=== PATIENT | male | born 1975 | race Two or more races ===

== ENCOUNTER 2019-01-18 06:55 | Inpatient (IN) | payer OTHER ==
[~2019-01-18] VITALS: Ht 180.3 cm; Wt 104.3 kg
--- NOTE | 2019-01-18 07:01 | NUR ---
BIBA FOR C/O CP X 2HRS. RECEIVED ONE SPRAY OF NITRO AND 162 MG OF ASA FUEL TANK SEALER AND TESTER W/ HELP. CURRENTLY PT ENDORSED CP 410 , RADIATING TO THE L ARM. PT PLACED ON A MONITOR, ECG TECH AT THE BED SIDE
[2019-01-18 07:22] LABS: BASOPHILS # (AUTO) 0.1 /CMM (0.0-0.2); BASOPHILS % (AUTO) 1.4 % (0.0-2.0); EOSINOPHILS % (AUTO) 1.2 % (0.0-6.0); HEMATOCRIT 48 % (39-51); HEMOGLOBIN 16.4 g/dL (13.5-17.5); LYMPHOCYTES # (AUTO) 1.4 /CMM (0.8-4.8); LYMPHOCYTES % (AUTO) 17.9 % (20.0-44.0); MEAN CORPUSCULAR HGB CONC 34 g/dl (31.0-36.0); MEAN CORPUSCULAR VOLUME 90 fL (80-96); MONOCYTES # (AUTO) 0.6 /CMM (0.1-1.30); MONOCYTES % (AUTO) 7.4 % (2.0-12.0); NEUTROPHILS # (AUTO) 5.5 /CMM (1.8-8.9); NEUTROPHILS % (AUTO) 72.1 % (43.0-81.0); PLATELET COUNT (AUTO) 233 /CMM (150-450); WHITE BLOOD COUNT (AUTO) 7.6 K/uL (4.3-11.0)
[2019-01-18 07:33] LABS: CALCIUM, SERUM 8.6 mg/dL (8.5-10.1); CARBON DIOXIDE 29 mmol/L (21-32); CHLORIDE 104 mmol/L (98-107); CREATININE 1.1 mg/dL (0.6-1.3); GLUCOSE 97 mg/dL (74-106); POTASSIUM 3.5 mmol/L (3.5-5.1); SODIUM SERUM 142 mmol/L (136-145); UREA NITROGEN, BLOOD 11 mg/dL (7-18)
--- NOTE | 2019-01-18 07:46 | NUR ---
epic distribution designer paged
[2019-01-18 07:47] LABS: ALANINE AMINOTRANSFERASE 27 U/L (12-78); ALBUMIN 3.6 g/dL (3.4-5.0); ALKALINE PHOSPHATASE 88 U/L (46-116); ASPARTATE AMINOTRANSFERASE 17 U/L (15-37); BILIRUBIN,DIRECT 0.1 mg/dL (0.0-0.2); BILIRUBIN,TOTAL 0.2 mg/dL (0.2-1.0)
--- NOTE | 2019-01-18 07:51 | NUR ---
epic manager online paged - Tito Faulkner DNP- via exchange
--- NOTE | 2019-01-18 07:53 | NUR ---
called the nursing supervisor chassis assembly - called for a tele bed
--- NOTE | 2019-01-18 08:34 | NUR ---
room [phone]
--- NOTE | 2019-01-18 08:34 | NUR ---
Stephy ferreira in [facility] - 01/18/19 at 0834 by [place] [phone]
--- NOTE | 2019-01-18 08:53 | NUR ---
REPORT GIVEN TO WILMA JAUREGUI ON 3RD FLOOR [facility].
[2019-01-18 09:15] VITALS: BP 134/89
--- NOTE | 2019-01-18 10:00 | NUR ---
LOADING UNIT OPERATOR ADMITTING NOTES ADMITTED A 43 Y/O MALE VIA GURNEY FROM [facility] ACCOMPANIED BY [facility] NURSE KELLEI. PT IS A/O X4. ABLE TO MAKE NEEDS KNOWN, DENIES CHEST PAIN OR ANY DISCOMFORTS AT THIS TIME. PT WITH DIAGNOSIS OF CHEST PAIN. PT ORIENTED TO UNIT, ROOM AND STAFF. AMBULATORY WITH STEADY GAIT. V/S TAKEN AND RECORDED. PHYSICAL ASSESSMENT DONE: PHOTOS OF SKIN ISSUES TAKEN AND FILED ON CHART. ABDOMEN SOFT, NON-TENDER AND NON-DISTENDED WITH + BOWEL SOUNDS ON FOUR QUADRANTS. LUNGS CLEAR ON AUSCULTATION. ALL EXTREMITIES INTACT AND ABLE TO MOVE W/O PROBLEMS. PT WITH IV ACCESS NOTED ON RAC G #18 INTACT AND FLUSHES WELL. INTACT AND FLUSHES WELL. PT PLACED ON TELEMONITORING WITH READINGS OF SR WITH HR ON THE 80'S NOTED. SAFETY MEASURES INITIATED. BED PLACED IN LOW, LOCKED POSITION W/ SIDE-RAILS UP X2. CALL LIGHT WITHIN EASY REACH OF PT. WILL CONTINUE TO MONITOR PT ACCORDINGLY.
[2019-01-18] MEDS ORDERED: ASPIRIN 81 MG TAB.CHEW PO SCH (10:30)
[2019-01-18] MEDS ORDERED: ATORVASTATIN 10 MG TABLET PO SCH (10:30)
[2019-01-18] MEDS ORDERED: ONDANSETRON HCL/PF 4 MG/2 ML VIAL IVP PRN (11:00)
[2019-01-18] MEDS ORDERED: Z GUARD REMEDY 2 OZ OINT TP PRN (11:00)
[2019-01-18] MEDS ORDERED: ACETAMINOPHEN 325 MG TABLET PO PRN (11:00)
[2019-01-18 12:00] VITALS: BP 133/85
[2019-01-18] MEDS: METOPROLOL TARTRATE 50 MG TABLET PO SCH ×2 (12:47→17:11)
[2019-01-18] MEDS ORDERED: IOHEXOL-350 100 ML VIAL IV ONE (13:17)
[2019-01-18] MEDS ORDERED: CT SWABBABLE VALVE TRANS SET 1 EA INFUS.SET MC ONE (13:17)
[2019-01-18] MEDS ORDERED: IV NS 0.9% 250 ML IV ONE (13:17)
[2019-01-18] MEDS ORDERED: METOPROLOL TARTRATE INJ 5 MG/5 ML AMPUL ONE (13:42)
[2019-01-18] MEDS ORDERED: NITROGLYCERIN 0.4 MG/TAB BOTTLE ONE (13:42)
[2019-01-18] MEDS ORDERED: NITROGLYCERIN 0.4 MG/TAB BOTTLE SL ONE (15:00)
[2019-01-18] MEDS ORDERED: METOPROLOL TARTRATE INJ 5 MG/5 ML AMPUL IVP ONE (15:00)
[2019-01-18 16:00] VITALS: BP 120/82
--- NOTE | 2019-01-18 18:52 | NUR ---
WOOL HAT FLANGER CLOSING NOTES PT AWAKE AND WATCHING TV IN BED. A/O X4. ABLE TO MAKE NEEDS KNOWN, NO C/O CHEST PAIN SINCE ADMITTED THIS MORNING. ON ROOM AIR, TOLERATING WELL WITH NO SOB NOTED. IV ACCESS ON RAC G#18 INTACT AND FLUSHES WELL. TELEMONITORING SHOWS SR WITH HR ON THE 80'S, NO C/O CARDIAC DISTRESS VOICED. ALL NEEDS AND CARE ATTENDED WELL. BED MAINTAINED IN LOW LOCKED POSITION W/ SIDE-RAILS UP X2. CALL LIGHT WITHIN EASY REACH OF PT. WILL ENDORSE TO PRODUCER DIRECTOR NURSE FOR REGINA
--- NOTE | 2019-01-18 19:20 | NUR ---
PHOTOGRAPHIC PRESS SCREWMAKER OPENING NOTES RECEIVED PATIENT IN BED, A/OX4, ABLE TO MAKE NEEDS KNOWN. DENIES ANY PAIN INCLUDING CHEST PAIN AT THE MOMENT. ON TELE MONITOR SINUS ALLYSON WITH HR 50S. ON ROOM AIR, TOLERATING WELL WITH NO SOB OR RESPIRATORY/CARDIAC DISTRESS NOTED. IV ACCESS ON RAC G#18, FLUSHING AND PATENT. SAFETY MEASURES IN PLACE; BED IN LOW AND LOCKED POSITION, SIDE-RAILS UP X2, CALL LIGHT WITHIN REACH. WILL CONTINUE TO MONITOR PT.
[2019-01-18 20:01] VITALS: BP 138/76
[2019-01-19] VITALS: BP 117/74
--- NOTE | 2019-01-19 | NUR ---
BURNING SUPERVISOR NOTES PATIENT 0000 VITAL SIGNS: BP 117/74, HR 49, O2 SAT 95%, TEMP 98.1, RR 19. METOPROLOL HELD D/T PATIENT BP 48-49 BPM. WILL CONT TO MONITOR PATIENT. Addendum: 01/19/19 at 0354 by KRYSTEN PORTILLO RN CLARIFICATION: METOPROLOL HELD D/T PATIENT HR 48-49.
[2019-01-19 04:00] VITALS: BP 120/76
[2019-01-19] MEDS: METOPROLOL TARTRATE 50 MG TABLET PO SCH ×2 (06:00)
[2019-01-19 06:30] LABS: BASOPHILS # (AUTO) 0.1 /CMM (0.0-0.2); BASOPHILS % (AUTO) 0.7 % (0.0-2.0); EOSINOPHILS % (AUTO) 2.5 % (0.0-6.0); HEMATOCRIT 47 % (39-51); LYMPHOCYTES # (AUTO) 1.5 /CMM (0.8-4.8); LYMPHOCYTES % (AUTO) 21.3 % (20.0-44.0); MEAN CORPUSCULAR HGB CONC 34 g/dl (31.0-36.0); MEAN CORPUSCULAR VOLUME 89 fL (80-96); MONOCYTES # (AUTO) 0.6 /CMM (0.1-1.30); MONOCYTES % (AUTO) 7.8 % (2.0-12.0); NEUTROPHILS # (AUTO) 4.9 /CMM (1.8-8.9); NEUTROPHILS % (AUTO) 67.7 % (43.0-81.0); PLATELET COUNT (AUTO) 217 /CMM (150-450); RED BLOOD CELL COUNT(AUTO) 5.29 MIL/uL (4.5-6.0); WHITE BLOOD COUNT (AUTO) 7.3 K/uL (4.3-11.0)
[2019-01-19 07:02] LABS: ALANINE AMINOTRANSFERASE 21 U/L (12-78); ALBUMIN 3.2 g/dL (3.4-5.0); ALKALINE PHOSPHATASE 72 U/L (46-116); ASPARTATE AMINOTRANSFERASE 10 U/L (15-37); BILIRUBIN,TOTAL 0.4 mg/dL (0.2-1.0); CALCIUM, SERUM 8.4 mg/dL (8.5-10.1); CARBON DIOXIDE 23 mmol/L (21-32); CHLORIDE 107 mmol/L (98-107); CHOLESTEROL 135 mg/dL (<200); CREATININE 0.8 mg/dL (0.6-1.3); GLUCOSE 88 mg/dL (74-106); HDL CHOLESTEROL 35 mg/dL (40-60); LDL 89 mg/dL (0-99); MAGNESIUM 1.8 mg/dL (1.8-2.4); PHOSPHORUS 3.3 mg/dL (2.5-4.9); SODIUM SERUM 139 mmol/L (136-145); TOTAL PROTEIN, SERUM 6.5 g/dL (6.4-8.2); TRIGLYCERIDES 102 mg/dL (30-150); UREA NITROGEN, BLOOD 10 mg/dL (7-18)
--- NOTE | 2019-01-19 07:30 | NUR ---
RN OPENING NOTES Received patient in bed resting. a/ox4, able to make needs known. Not in any form of distress, no sob, denies pain or discomfort at this time. iv access intact and patent. Kept patitn safe and comfrotable. Bed in low/locked position, siderail upx2, call light in reach. Will continue to moniotr accordingly
--- NOTE | 2019-01-19 07:40 | NUR ---
INFORMATICS SPEC CLOSING NOTES PATIENT IN BED, A/OX4, ABLE TO MAKE NEEDS KNOWN. NO ACUTE CHANGES THROUGHOUT SHIFT. DENIES ANY PAIN INCLUDING CHEST PAIN THROUGHOUT SHIFT. ON TELE MONITOR SINUS ALLYSON WITH HR 50S. ON ROOM AIR, TOLERATING WELL WITH NO SOB OR RESPIRATORY/CARDIAC DISTRESS NOTED. IV ACCESS ON RAC G#18, FLUSHING AND PATENT. SAFETY MEASURES IN PLACE; BED IN LOW AND LOCKED POSITION, SIDE-RAILS UP X2, CALL LIGHT WITHIN REACH. ALL MD ORDERS ATTENDED, ALL NEEDS ANTICIPATED AND MET. ENDORSED TO AM RN FOR REGINA.
[2019-01-19 08:00] VITALS: BP 122/75
--- NOTE | 2019-01-19 08:27 | NUR ---
RN NOTES LIPITOR AND ASA PULLED OUT, OPENED. THEN WOULD NOT SAVE DOCTOR GALE JUST DC'd THE MEDICATIONS, VERIFIED WITH MD. ASPIRIN AND LIPITOR NON ADMIN AND WASTED IN THE MED DESTROYER BIN.
[2019-01-19] MEDS ORDERED: PANTOPRAZOLE 40 MG TABLET.DR PO SCH (09:00)
--- NOTE | 2019-01-19 11:28 | NUR ---
WOUND CARE CONSULT: PT PRESENTS WITH HEALING BLISTER TO RT ARM, PRESENT ON ADMISSION. RECOMMENDATIONS MADE AND DISCUSSED WITH NURSING STAFF. PT IS AMBULATORY AND CONTINENT. IN AGREEMENT WITH PLAN OF CARE. Addendum: 01/19/19 at 1131 by JEANNA MORENO WNDNU Amended: Links added.
[2019-01-19] MEDS ORDERED: NEOMY SULF/BACITRAC ZN/POLY 15 GM TUBE TP SCH (11:31)
--- NOTE | 2019-01-19 12:30 | NUR ---
discharged patient in stable condition picked up by friend, ccompanied by bina Cisneros at the [facility]. discharged instructions given, verbalized understanding, educational material explained and given per protocol. all belongings returned, forms signed. removed iv access, no complications. removed nameband. refused skin photo, per patient "they already took it yesterday, no i dont want it". Addendum: 01/19/19 at 1347 by DAMIÁN CARRION handed dc paperwork
[2019-01-20] MEDS ORDERED: NEOMY SULF/BACITRAC ZN/POLY 15 GM TUBE TP SCH (09:00)
== END 2019-01-19 12:30 | disposition home or self-care (01) | DRG 392 ==
LOC: ER 06:56 → TELE 08:44 → MED 01-19 08:25
PROVIDERS: ADMIT Nurse Practitioner Acute Care; ATTEND Internal Medicine
DX: K29.70 Gastritis, unspecified, without bleeding (principal); I10 Essential (primary) hypertension; L40.9 Psoriasis, unspecified; E66.9 Obesity, unspecified; Z68.32 Body mass index [BMI] 32.0-32.9, adult; G47.33 Obstructive sleep apnea (adult) (pediatric); Z82.49 Family history of ischemic heart disease and other diseases of the circulatory system; Z83.3 Family history of diabetes mellitus; R07.89 Other chest pain; G47.30 Sleep apnea, unspecified; I49.3 Ventricular premature depolarization
CPT/HCPCS: 36415; 71045-TC; 75574; 80048-TC; 80053-TC; 80061-TC; 80076-TC; 83690-TC; 83735-TC; 84100-TC; 84443-TC; 84484-TC; 85025-TC; 87081-TC; 93307-TC; G0378; J3490; J7050; Q9967